=== PATIENT | female | born 1950 | race Two or more races ===

== ENCOUNTER → 2016-04-27 | Outpatient (CLI) | payer MEDICARE, OTHER ==
--- NOTE | 2016-04-30 16:00 | Diagnostic Imaging Report ---
Indication: Screening mammography. Technique: Bilateral mammography performed with craniocaudal and mediolateral oblique projections. Prior examinations: None available Findings: Breast density Birads type 2: The breasts show scattered fibroglandular densities ranging from 25%-50% of the breasts. There are ill-defined somewhat nodular appearing densities within both breasts in the central to 12:00 position and in the upper-outer quadrants bilaterally. Recommend obtaining bilateral diagnostic mammography for further evaluation. Ultrasound as needed could be performed at that time as well. Impression: BI-RADS zero pending bilateral diagnostic mammography as discussed
== END | disposition home or self-care (01) ==
LOC: MAMMO 13:00
DX: Z12.31 Encounter for screening mammogram for malignant neoplasm of breast (principal)
CPT/HCPCS: 77067

== ENCOUNTER 2017-06-15 10:37 | Outpatient (CLI) | payer MEDICARE, OTHER ==
--- NOTE | 2017-06-15 15:17 | Diagnostic Imaging Report ---
Indication: Reason For Exam: PAIN Technique: 3 views of the right ankle Comparison: none Findings: No acute fractures. No dislocations. Probably an ununited ossification center the tip of the medial malleolus. There are vascular calcifications. No definite osseous erosions or unusual periosteal reaction. There is a small calcaneal spur Impression: No acute process
== END 2017-06-15 12:37 | disposition home or self-care (01) ==
LOC: RAD 10:37 → EDBD 10:37 → RAD 12:37
DX: M25.571 Pain in right ankle and joints of right foot (principal)

== ENCOUNTER → 2017-06-29 | Outpatient (CLI) | payer MEDICARE, OTHER ==
--- NOTE | 2017-06-29 13:33 | Diagnostic Imaging Report ---
Indication: Pain. History of ankle injury 2 months ago. Pain on the medial side Technique: Right ankle/hind foot imaging utilizing multiplanar T1 fast spin-echo, proton and T2 fast spin-echo with fat saturation, and STIR. Comparison: None Findings: There is evidence of a split thickness tear of the posterior tibialis tendon just posterior to the medial malleolus. The tendon bifurcates in this location and is abnormally thickened with intermediate to slightly high grade T2 signal within the medial component of the split-thickness tear. In addition there is tenosynovitis with fluid surrounding the tendon and adjacent subcutaneous edema. The tendon is not ruptured and tendon is attached to the base of the navicular. Adjacent flexor digitorum longus is normal. Flexor hallucis longus is normal. The deltoid ligamentous complex is grossly normal. Bone marrow signal is normal and there is no malalignment. There is no fracture. The extensor tendons are normal. Achilles tendon, peroneus longus and brevis tendons are unremarkable. The ligaments and the lateral part of the ankle are normal including the anterior and posterior tibiofibular ligaments, calcaneofibular ligament, anterior and posterior talofibular ligaments. Plantar aponeurosis, tarsal sinus, subtalar joint and Achilles tendon appear unremarkable. IMPRESSION: Moderate split-thickness tear involving the posterior tibialis tendon. Split-thickness injury begins just posterior to the medial malleolus and the tube bifurcated components attached onto the navicular. Associated tenosynovitis.
== END | disposition home or self-care (01) ==
LOC: MRI 11:01
DX: S96.911D Strain of unspecified muscle and tendon at ankle and foot level, right foot, subsequent encounter (principal); X58.XXXD Exposure to other specified factors, subsequent encounter; M65.9 Synovitis and tenosynovitis, unspecified

== ENCOUNTER 2017-12-01 12:30 | Outpatient (RCR) | payer MEDICARE, OTHER ==
[2017-12-24] MEDS ORDERED: AMLODIPINE BES2.5 MG ORAL (11:08)
[2017-12-24] MEDS ORDERED: LOVASTATIN40 MG ORAL (11:08)
[2017-12-24] MEDS ORDERED: DICLOFENAC SODI50 MG ORAL (11:08)
[2017-12-24] MEDS ORDERED: METOPROLOL TART25 MG ORAL (11:08)
[2017-12-24] MEDS ORDERED: ASPIR 8181 MG ORAL (11:08)
== END 2017-12-29 | disposition home or self-care (01) ==
LOC: PTY 12:30
DX: M51.16 Intervertebral disc disorders with radiculopathy, lumbar region (principal); R26.89 Other abnormalities of gait and mobility; I10 Essential (primary) hypertension; I25.2 Old myocardial infarction; S93.401D Sprain of unspecified ligament of right ankle, subsequent encounter
CPT/HCPCS: 97110; 97162; G8978; G8979

== ENCOUNTER 2017-12-24 10:55 | Inpatient (IN) | payer MEDICARE, OTHER ==
[~2017-12-24] VITALS: Ht 154.9 cm; Wt 86.2 kg
[2017-12-24] MEDS ORDERED: LOVASTATIN40 MG ORAL (11:08)
[2017-12-24] MEDS ORDERED: METOPROLOL TART25 MG ORAL (11:08)
[2017-12-24] MEDS ORDERED: AMLODIPINE BES2.5 MG ORAL (11:08)
[2017-12-24] MEDS ORDERED: ASPIR 8181 MG ORAL (11:08)
[2017-12-24] MEDS ORDERED: DICLOFENAC SODI50 MG ORAL (11:08)
[2017-12-24 11:12] VITALS: BP 153/80
--- NOTE | 2017-12-24 11:15 | Emergency Room Report ---
History of Present Illness General Chief Complaint: Gastrointestinal Bleed Source: Patient Present Illness HPI Patient presents with 2 days of rectal bleeding. She started yesterday with passing bright red lead. She has no pain. This is never happened to her before. Today she's passed more blood without clots. Then when she moved her bowels it was dark and that looked like blood was mixed with the stool. She does read on the toilet. After an episode of chest discomfort and unsettled stomach she took herbal laxatives and therefore had some straining several days ago. She tore ligament recently and has been taking diclofenac. She's not taking it for over a week. She took aspirin last night. She takes aspirin every night. The patient had colonoscopy 5 years ago. No polyps were need to be removed. She had diverticula. Many years ago she was having rectal pain that occasionally woke her up in the night. On Wednesday she needs to see her manager meat because her blood pressure was 202 systolic. She's also been feeling chest discomfort with the urge to burp. She was checked by her manager meat and told that she was fine. No EKG was done at that time. She does take medicine for high blood pressure. Allergies: Coded Allergies: IODINE (Verified Allergy, Unknown, 12/24/17) Patient History Past Medical History: see triage record Social History: Denies: smoking Last Menstrual Period: menopause Reviewed Nursing Documentation: PMH: Agreed; PSxH: Agreed Nursing Documentation-PMH Past Medical History: No History, Except For Hx Cardiac Problems: No - two heart attacks Physical Exam Vital Signs Date Time Temp Pulse Resp B/P (MAP) Pulse Ox O2 Delivery O2 Flow Rate FiO2 12/24/17 11:00 98.2 56 18 153/80 98 Room Air Sp02 EP Interpretation: reviewed, normal General Appearance: well appearing, no apparent distress, GCS 15 Head: normocephalic Eyes: bilateral eye normal inspection, bilateral eye PERRL ENT: moist mucus membranes Neck: supple Respiratory: lungs clear, normal breath sounds Cardiovascular #1: regular rate, rhythm Cardiovascular #2: 2+ radial (R) Gastrointestinal: normal inspection, normal bowel sounds, non tender, no mass, non-distended Rectal: heme positive stool - dark red, no hemorrhoids felt Musculoskeletal: back normal, gait/station normal, normal range of motion Neurologic: alert, oriented x3, grossly normal Psychiatric: mood/affect normal Skin: normal inspection, warm/dry Medical Decision Making Diagnostic Impression: Primary Impression: Lower GI bleed Additional Impressions: Hypernatremia Hypercarbia ER Course Patient presents with rectal bleeding and chest discomfort. The latter is more disconcerting and differential includes acute myocardial infarction, acute coronary syndrome, gastritis, GERD, esophagitis amongst others. This needs to be evaluated with EKG, chest x-ray and labs. Her chief complaint of a lower GI bleeding sounds hemorrhoidal however this could also be diverticular as well as a mass. Latter is less likely can she had colonoscopy 5 years ago. She'll be evaluated with labs regarding this. Also abdominal films will be obtained. The patient will be given a dose of Pepcid. EKG was sinus bradycardia but otherwise normal EKG rate of 54. Abnormal labs with elevated sodium and bicarb. CBC, coags and UA normal. Abd film with increased stool. CXR clear. Bradycardia might mask significant bleed as on metoprolol. Possible diverticular bleed vs hemorrhoid. As large amount of blood, will admit for monitor of bleed, consideration of colonoscopy and observation for chest discomfort. ACS low possibility so will admit Med, Dr. Best. Laboratory Tests Test 12/24/17 11:30 12/24/17 12:20 12/24/17 12:40 12/24/17 13:00 White Blood Count 6.3 K/UL (4.8-10.8) Red Blood Count 4.38 M/UL (4.20-5.40) Hemoglobin 13.4 G/DL (12.0-16.0) Hematocrit 39.6 % (37.0-47.0) Mean Corpuscular Volume 90 FL (80-99) Mean Corpuscular Hemoglobin 30.7 PG (27.0-31.0) Mean Corpuscular Hemoglobin Concent 33.9 G/DL (32.0-36.0) Red Cell Distribution Width 12.2 % (11.6-14.8) Platelet Count 208 K/UL (150-450) Mean Platelet Volume 7.7 FL (6.5-10.1) Neutrophils (%) (Auto) 55.9 % (45.0-75.0) Lymphocytes (%) (Auto) 34.3 % (20.0-45.0) Monocytes (%) (Auto) 6.3 % (1.0-10.0) Eosinophils (%) (Auto) 2.3 % (0.0-3.0) Basophils (%) (Auto) 1.2 % (0.0-2.0) Troponin I 0.000 ng/mL (0.000-0.056) Prothrombin Time 10.2 SEC (9.30-11.50) Prothrombin Time INR 1.0 (0.9-1.1) PTT 27 SEC (23-33) Sodium Level 147 MMOL/L (136-145) H Potassium Level 4.4 MMOL/L (3.5-5.1) Chloride Level 109 MMOL/L (98-107) H Carbon Dioxide Level 34 MMOL/L (21-32) H Anion Gap 4 mmol/L (5-15) L Blood Urea Nitrogen 19 mg/dL (7-18) H Creatinine 1.1 MG/DL (0.55-1.30) Estimate Glomerular Filtration Rate 59.8 mL/min (>60) Glucose Level 69 MG/DL (74-106) L Calcium Level 8.9 MG/DL (8.5-10.1) Total Bilirubin 0.6 MG/DL (0.2-1.0) Aspartate Amino Transferase (AST) 19 U/L (15-37) Alanine Aminotransferase (ALT) 29 U/L (12-78) Alkaline Phosphatase 88 U/L (46-116) Total Protein 6.5 G/DL (6.4-8.2) Albumin 3.2 G/DL (3.4-5.0) L Globulin 3.3 g/dL Albumin/Globulin Ratio 1.0 (1.0-2.7) Lipase 138 U/L (73-393) Urine Color Yellow Urine Appearance Clear Urine pH 6 (4.5-8.0) Urine Specific [place] 1.015 (1.005-1.035) Urine Protein Negative (NEGATIVE) Urine Glucose (UA) Negative (NEGATIVE) Urine Ketones Negative (NEGATIVE) Urine Blood 2+ (NEGATIVE) H Urine Nitrite Negative (NEGATIVE) Urine Bilirubin Negative (NEGATIVE) Urine Urobilinogen Normal MG/DL (0.0-1.0) Urine Leukocyte Esterase Negative (NEGATIVE) Urine RBC 2-4 /HPF (0 - 2) H Urine WBC 2-4 /HPF (0 - 2) Urine Squamous Epithelial Cells Few /LPF (NONE/OCC) Urine Bacteria Few /HPF (NONE) EKG Diagnostic Results Rate: bradycardiac ST Segments: no acute changes Rhythm Strip Diag. Results EP Interpretation: yes Rhythm: no PVC's, no ectopy, other - Sinus bradycardia Chest X-Ray Diagnostic Results Chest X-Ray Diagnostic Results : Chest X-Ray Ordered: Yes Indication: Chest Pain Interpretation: no consolidation, no effusion, no pneumothorax Impression: No acute disease Electronically Signed by: Patric Amaya MD Other X-Ray Diagnostic Results Other X-Ray Diagnostic Results : X-Ray ordered: ABD # of Views/Limited Vs Complete: 2 View Indication: Other EP Interpretation: Yes Interpretation: nonspecific bowel gas, no sbo, other - increased stool load Impression: Other Electronically Signed by: Electronically signed by Patric Amaya MD Last Vital Signs Date Time Temp Pulse Resp B/P (MAP) Pulse Ox O2 Delivery O2 Flow Rate FiO2 12/24/17 20:31 54 138/75 12/24/17 20:00 98.3 20 96 12/24/17 16:23 Room Air Status: improved Disposition: ADMITTED INPATIENT Condition: Serious Patric Amaya MD Dec 24, 2017 11:15
[2017-12-24 11:51] LABS: BASOPHILS % (AUTO) 1.2 % (0.0-2.0); EOSINOPHILS % (AUTO) 2.3 % (0.0-3.0); HEMATOCRIT 39.6 % (37.0-47.0); HEMOGLOBIN 13.4 G/DL (12.0-16.0); LYMPHOCYTES % (AUTO) 34.3 % (20.0-45.0); MEAN CORPUSCULAR VOLUME 90 FL (80-99); MONOCYTES % (AUTO) 6.3 % (1.0-10.0); NEUTROPHILS % (AUTO) 55.9 % (45.0-75.0); PLATELET COUNT 208 K/UL (150-450); RED BLOOD COUNT 4.38 M/UL (4.20-5.40); RED CELL DISTRIBUTION WIDTH 12.2 % (11.6-14.8); WHITE BLOOD COUNT 6.3 K/UL (4.8-10.8)
[2017-12-24 12:58] LABS: ANION GAP 4 mmol/L (5-15); BLOOD UREA NITROGEN 19 mg/dL (7-18); CALCIUM 8.9 MG/DL (8.5-10.1); CARBON DIOXIDE 34 MMOL/L (21-32); CHLORIDE 109 MMOL/L (98-107); CREATININE 1.1 MG/DL (0.55-1.30); POTASSIUM 4.4 MMOL/L (3.5-5.1); SODIUM 147 MMOL/L (136-145)
[2017-12-24 13:02] LABS: ALANINE AMINOTRANSFERASE 29 U/L (12-78); ALBUMIN 3.2 G/DL (3.4-5.0); ALKALINE PHOSPHATASE 88 U/L (46-116); ASPARTATE AMINO TRANSFERASE 19 U/L (15-37); BILIRUBIN,TOTAL 0.6 MG/DL (0.2-1.0)
[2017-12-24 13:32] VITALS: BP 121/75
[2017-12-24 13:34] LABS: APPEARANCE,URINE CLEAR; BILIRUBIN, URINE NEGATIVE (NEGATIVE); COLOR,URINE YELLOW; GLUCOSE, URINE (UA) NEGATIVE (NEGATIVE); KETONES,URINE NEGATIVE (NEGATIVE); LEUKOCYTE ESTERASE ,URINE NEGATIVE (NEGATIVE); NITRITE,URINE NEGATIVE (NEGATIVE); PH,URINE 6 (4.5-8.0); PROTEIN,URINE NEGATIVE (NEGATIVE); UROBILINOGEN,URINE NORMAL MG/DL (0.0-1.0)
[2017-12-24 14:45] VITALS: BP 144/75
--- NOTE | 2017-12-24 15:17 | GI Initial Consult Note ---
History of Present Illness General Date patient seen: Dec 24, 2017 Time patient seen: 15:09 Reason for Hospitalization: Gastrointestinal Bleed Referring physician: CRICKET LOWERY Reason for Consultation: GI BLEED Present Illness HPI Patient presents with 2 days of rectal bleeding. She started yesterday with passing bright red lead. She has no pain. This is never happened to her before. Today she's passed more blood without clots. Then when she moved her bowels it was dark and that looked like blood was mixed with the stool. She does read on the toilet. After an episode of chest discomfort and unsettled stomach she took herbal laxatives and therefore had some straining several days ago. She tore ligament recently and has been taking diclofenac. She's not taking it for over a week. She took aspirin last night. She takes aspirin every night. The patient had colonoscopy 5 years ago. No polyps were need to be removed. She had diverticula. Many years ago she was having rectal pain that occasionally woke her up in the night. On Wednesday she needs to see her label printing machinist because her blood pressure was 202 systolic. She's also been feeling chest discomfort with the urge to burp. She was checked by her label printing machinist and told that she was fine. No EKG was done at that time. She does take medicine for high blood pressure. GI consulted for GI bleed. HPI noted as above. Pt seen, awake A&Ox4 NAD with no active s/sx of N/V/D. Rectal exam deferred, has been performed by ED MD with no noted hemorrhoids per RN report. Labs reviewed showed no anemia nor leukocytosis. In addition, the patient has complaint of abdominal bloating and GERD. States she has history of NM, but is only on aspirin. No history of EGD , last colonoscopy x5 years. Home Meds Reported Medications Metoprolol Tartrate* (METOPROLOL TARTRATE*) 25 Mg Tablet, 25 MG ORAL EVERY 12 HOURS, TAB 12/24/17 Lovastatin (LOVASTATIN) 40 Mg Tablet, 40 MG ORAL BEDTIME, #30 TAB 0 Refills 12/24/17 Diclofenac Sod* (VOLTAREN*) 50 Mg Tablet.dr, 50 MG ORAL THREE TIMES A DAY, TAB 12/24/17 Aspirin* (ASPIR 81*) 81 Mg Tablet.dr, 81 MG ORAL DAILY, TAB 12/24/17 Amlodipine Besylate* (AMLODIPINE BESYLATE*) 2.5 Mg Tablet, 2.5 MG ORAL DAILY, TAB 12/24/17 Med list reviewed/reconciled: Yes Allergies: Coded Allergies: IODINE (Verified Allergy, Unknown, 12/24/17) Patient History History Provided By: Patient, Medical Record PMH Narrative Past Medical History: see triage record Social History: Denies: smoking Last Menstrual Period: menopause Reviewed Nursing Documentation: PMH: Agreed; PSxH: Agreed Nursing Documentation-PMH Past Medical History: No History, Except For Hx Cardiac Problems: No - two heart attacks Pertinent Family History: none Social History: Denies: smoking, alcohol use, drug use, other Physical Exam Vital Signs Date Time Temp Pulse Resp B/P (MAP) Pulse Ox O2 Delivery O2 Flow Rate FiO2 12/24/17 11:00 98.2 56 18 153/80 98 Room Air Sp02 EP Interpretation: reviewed, normal Labs Laboratory Tests Test 12/24/17 11:30 12/24/17 12:20 12/24/17 12:40 12/24/17 13:00 White Blood Count 6.3 K/UL (4.8-10.8) Red Blood Count 4.38 M/UL (4.20-5.40) Hemoglobin 13.4 G/DL (12.0-16.0) Hematocrit 39.6 % (37.0-47.0) Mean Corpuscular Volume 90 FL (80-99) Mean Corpuscular Hemoglobin 30.7 PG (27.0-31.0) Mean Corpuscular Hemoglobin Concent 33.9 G/DL (32.0-36.0) Red Cell Distribution Width 12.2 % (11.6-14.8) Platelet Count 208 K/UL (150-450) Mean Platelet Volume 7.7 FL (6.5-10.1) Neutrophils (%) (Auto) 55.9 % (45.0-75.0) Lymphocytes (%) (Auto) 34.3 % (20.0-45.0) Monocytes (%) (Auto) 6.3 % (1.0-10.0) Eosinophils (%) (Auto) 2.3 % (0.0-3.0) Basophils (%) (Auto) 1.2 % (0.0-2.0) Troponin I 0.000 ng/mL (0.000-0.056) Prothrombin Time 10.2 SEC (9.30-11.50) Prothromb Time International Ratio 1.0 (0.9-1.1) Activated Partial Thromboplast Time 27 SEC (23-33) Sodium Level 147 MMOL/L (136-145) H Potassium Level 4.4 MMOL/L (3.5-5.1) Chloride Level 109 MMOL/L (98-107) H Carbon Dioxide Level 34 MMOL/L (21-32) H Anion Gap 4 mmol/L (5-15) L Blood Urea Nitrogen 19 mg/dL (7-18) H Creatinine 1.1 MG/DL (0.55-1.30) Estimat Glomerular Filtration Rate 59.8 mL/min (>60) Glucose Level 69 MG/DL (74-106) L Calcium Level 8.9 MG/DL (8.5-10.1) Total Bilirubin 0.6 MG/DL (0.2-1.0) Aspartate Amino Transf (AST/SGOT) 19 U/L (15-37) Alanine Aminotransferase (ALT/SGPT) 29 U/L (12-78) Alkaline Phosphatase 88 U/L (46-116) Total Protein 6.5 G/DL (6.4-8.2) Albumin 3.2 G/DL (3.4-5.0) L Globulin 3.3 g/dL Albumin/Globulin Ratio 1.0 (1.0-2.7) Lipase 138 U/L (73-393) Urine Color Yellow Urine Appearance Clear Urine pH 6 (4.5-8.0) Urine Specific [place] 1.015 (1.005-1.035) Urine Protein Negative (NEGATIVE) Urine Glucose (UA) Negative (NEGATIVE) Urine Ketones Negative (NEGATIVE) Urine Blood 2+ (NEGATIVE) H Urine Nitrite Negative (NEGATIVE) Urine Bilirubin Negative (NEGATIVE) Urine Urobilinogen Normal MG/DL (0.0-1.0) Urine Leukocyte Esterase Negative (NEGATIVE) Urine RBC 2-4 /HPF (0 - 2) H Urine WBC 2-4 /HPF (0 - 2) Urine Squamous Epithelial Cells Few /LPF (NONE/OCC) Urine Bacteria Few /HPF (NONE) General Appearance: well appearing, no apparent distress, alert Head: normocephalic EENT: PERRL/EOMI, normal ENT inspection Neck: supple Respiratory: normal breath sounds, no respiratory distress Cardiovascular: normal rate Gastrointestinal: normal inspection, non tender, soft, normal bowel sounds, non -distended Rectal: deferred Genitourinary: no CVA tenderness Musculoskeletal: normal inspection, back normal Neurologic: normal inspection, alert, oriented x3, responsive Psychiatric: normal inspection, judgement/insight normal, memory normal Skin: normal inspection, normal color, no rash, warm/dry, palpation normal, well hydrated Lymphatic: normal inspection, no adenopathy GI: Plan Problems: (1) Bleeding hemorrhoid (2) Diverticular hemorrhage (3) Lower GI bleed Plan no anemia. no leukocytosis. plan for colonoscopy next wednesday. - prep on wednesday, then NPO @ OK. okay to advance diet prn transfusions ppi fu labs Discussed with Dr. Noriega. Thank you for this patient referral, we will follow. The patient was seen and examined at bedside and all new and available data was reviewed in the patients chart. I agree with the above findings, impression and plan. (Patient seen earlier today. Signature stamp does not reflect patient encounter time.). - MD Mattie Singh,[facility] [employer] Dec 24, 2017 15:16
--- NOTE | 2017-12-24 15:25 | Diagnostic Imaging Report ---
Indication: Cough Technique: One view of the chest Comparison: none Findings: Lungs and pleural spaces are clear. Heart size is normal . The aorta is tortuous and calcified Impression: No acute process
--- NOTE | 2017-12-24 15:27 | Diagnostic Imaging Report ---
Indication: Abdominal pain Technique: Supine view of the abdomen Comparison: none Findings: Bowel gas pattern is unremarkable. No unusual masses or calcifications. No gaseous distention of large or small bowel. Bones demonstrate somewhat mottled appearance of the bilateral greater trochanters. There are degenerative changes of the lower lumbar spine. Impression: No acute process Somewhat unusual appearance of the bilateral greater trochanters of the hips. Most likely artifact due to overlying soft tissue lucencies and densities, but dedicated pelvic radiograph should be considered Findings previously discussed by phone with Dr. Amaya
[2017-12-24 16:10] VITALS: BP 142/72
[2017-12-24 20:00] VITALS: BP 138/75
[2017-12-24] MEDS: Zolpidem 5mg tab ORAL PRN (20:31)
[2017-12-24] MEDS: Metoprolol 25mg tab ORAL SCH (20:31)
--- NOTE | 2017-12-24 23:30 | Consultation ---
DATE OF CONSULTATION: 12/24/2017 REQUESTING PHYSICIAN: Frederic Shipman M.D. CONSULTING PHYSICIAN: Patric Best M.D. REASON FOR CONSULTATION: Chest pain and bradycardia in the setting of acute gastrointestinal bleeding. HISTORY OF PRESENT ILLNESS: This is a 67-year-old female with a history of asymptomatic diverticulosis who presented to the hospital with 2 days of progressive rectal bleeding. Yesterday, she had a small amount of light bright red blood with her bowel movement and today more greater amounts, quantitated to be about a pint ____. No abdominal pain noted. No nausea, vomiting, or dizziness, but she did have some chest pressure. The patient does take daily aspirin as well as Diclofenac more recently for a torn ligament of her ankle. The patient's last colonoscopy was about 5 years ago. She only was noted to have diverticula, but no other pathology. She has not had any nausea or vomiting. The patient did see me in my office early last week for an elevated blood pressure of over 200 systolic. She had burping. Her blood pressure regimen was adjusted. The patient has had a prior stress echocardiogram at my office within the last six months that revealed good exercise capacity and low likelihood for flow-limiting coronary artery disease. The patient's baseline echocardiogram reveals normal ejection fraction with mild concentric hypertrophy and no significant valvular disease. PAST MEDICAL HISTORY: Coronary artery disease, history of myocardial infarction, diverticulosis, sleep apnea, osteoarthritis, degenerative disk disease, hyperlipidemia, and recent ankle injury. MEDICATIONS: Prior to admission, reviewed and reconciled. ALLERGIES: Iodine. SOCIAL HISTORY: Negative for smoking, alcohol, or substance abuse. FAMILY HISTORY: Notable for hypertension and stroke. REVIEW OF SYSTEMS: No fevers or chills. No cough or sputum production. Her BiPAP machine has recently been functioning poorly and she is waiting for a new one. She is noted to have syncope. There is ___ history of asthma or blood clots in the legs. There is no history of seizure or stroke. There is no prior history of melena or bright red blood per rectum. There is no history of kidney disease. There is no history of diabetes or thyroid impairment. She is on statin therapy for elevated lipid. PHYSICAL EXAMINATION: VITAL SIGNS: Afebrile, blood pressure 153/80, pulse 56, respiratory rate 18, and room air oxygen saturation 98%. HEENT: Conjunctivae are pink. Sclerae are anicteric. Oropharynx clear. Mucous membranes moist. NECK: Supple. Jugular venous pressure normal. No bruits. LUNGS: Clear. No breast masses. CARDIAC: Regular rhythm and rate. Normal S1 and S2 with a fourth heart sound. ABDOMEN: Soft and nontender. No guarding. No rebound. No hepatosplenomegaly. EXTREMITIES: Good pulses. No edema. NEUROLOGIC: Nonfocal. LABORATORY DATA: EKG with sinus bradycardia and no acute pathology. White count 6.3 and hemoglobin 13.4. Sodium 147, potassium 4.4, bicarbonate 34, BUN 19, and creatinine 1.1. Albumin 3.2. Troponin negative. IMPRESSION: 1. Acute lower gastrointestinal bleeding. 2. Chest pain episode, possibly anginal. 3. Sinus bradycardia, on beta-blockers and asymptomatic. 4. History of ischemic heart disease. 5. Prior myocardial infarction, stable angina and recent normal stress test. 6. Sleep apnea. 7. Hypertensive heart disease with labile blood pressure. PLAN: 1. Hold anti-platelet therapy including nonsteroidal drugs and aspirin. 2. Monitor hemoglobin. 3. Empiric proton pump inhibitor. 4. Continue beta-irma with hold parameters. 5. Titrate antihypertensives based on clinical parameters. 6. Avoid ____ blood pressure control in the setting of potential further gastrointestinal bleeding. 7. Avoid heparin at this time. Patric Best M.D. DR: ASHLEY JOB#: [id number] CC:
[2017-12-25] VITALS: BP 134/70
[2017-12-25 04:00] VITALS: BP 102/57
[2017-12-25 08:00] VITALS: BP 148/71
--- NOTE | 2017-12-25 08:08 | General Progress Note ---
Assessment/Plan Problem List: (1) Lower GI bleed ICD Codes: K92.2 - Gastrointestinal hemorrhage, unspecified SNOMED: 48050752 Assessment/Plan most likely diverticular bleed bowel regimen fu labs colonoscopy on Wednesday Subjective ROS Limited/Unobtainable: Yes Allergies: Coded Allergies: IODINE (Verified Allergy, Unknown, 12/24/17) Subjective no recurrent bleed Objective Last 24 Hour Vital Signs Date Time Temp Pulse Resp B/P (MAP) Pulse Ox O2 Delivery O2 Flow Rate FiO2 12/25/17 04:00 98.2 89 20 102/57 (72) 99 12/25/17 00:00 97.9 54 20 134/70 (91) 98 12/24/17 21:00 Room Air 12/24/17 20:31 54 138/75 12/24/17 20:00 98.3 54 20 138/75 (96) 96 12/24/17 16:23 Room Air 12/24/17 16:10 98.3 55 20 142/72 (95) 97 12/24/17 14:45 98.2 56 14 144/75 98 Room Air 12/24/17 14:45 98.2 56 14 144/75 98 Room Air 12/24/17 13:32 98.2 56 15 121/75 98 Room Air 12/24/17 11:12 98.2 60 18 153/80 98 Room Air 12/24/17 11:10 56 18 Room Air 12/24/17 11:00 98.2 56 18 153/80 98 Room Air Intake and Output 12/24/17 12/25/17 19:00 07:00 Intake Total 1375 ml Balance 1375 ml Intake IV Total 1375 ml # Voids 2 Laboratory Tests 12/24/17 11:30: White Blood Count 6.3, Red Blood Count 4.38, Hemoglobin 13.4, Hematocrit 39.6, Mean Corpuscular Volume 90, Mean Corpuscular Hemoglobin 30.7, Mean Corpuscular Hemoglobin Concent 33.9, Red Cell Distribution Width 12.2, Platelet Count 208, Mean Platelet Volume 7.7, Neutrophils (%) (Auto) 55.9, Lymphocytes (%) (Auto) 34.3, Monocytes (%) (Auto) 6.3, Eosinophils (%) (Auto) 2.3, Basophils (%) (Auto ) 1.2, Troponin I 0.000 12/24/17 12:20: Prothrombin Time 10.2, Prothromb Time International Ratio 1.0, Activated Partial Thromboplast Time 27 12/24/17 12:40: Sodium Level 147H, Potassium Level 4.4, Chloride Level 109H, Carbon Dioxide Level 34H, Anion Gap 4L, Blood Urea Nitrogen 19H, Creatinine 1.1, Estimat Glomerular Filtration Rate 59.8, Glucose Level 69L, Calcium Level 8.9, Total Bilirubin 0.6, Aspartate Amino Transf (AST/SGOT) 19, Alanine Aminotransferase ( ALT/SGPT) 29, Alkaline Phosphatase 88, Total Protein 6.5, Albumin 3.2L, Globulin 3.3, Albumin/Globulin Ratio 1.0, Lipase 138 12/24/17 13:00: Urine Color Yellow, Urine Appearance Clear, Urine pH 6, Urine Specific [place] 1.015, Urine Protein Negative, Urine Glucose (UA) Negative, Urine Ketones Negative, Urine Blood 2+H, Urine Nitrite Negative, Urine Bilirubin Negative, Urine Urobilinogen Normal, Urine Leukocyte Esterase Negative, Urine RBC 2-4H, Urine WBC 2-4, Urine Squamous Epithelial Cells Few, Urine Bacteria Few Height (Feet): 5 Height (Inches): 1.00 Weight (Pounds): 190 General Appearance: alert EENT: PERRL/EOMI Neck: supple Cardiovascular: normal rate Respiratory/Chest: decreased breath sounds Abdomen: normal bowel sounds, non tender, soft Extremities: non-tender Clarence Noriega MD Dec 25, 2017 08:08
[2017-12-25] MEDS: Metoprolol 25mg tab ORAL SCH ×2 (08:19→21:48)
[2017-12-25] MEDS: Docusate 100mg cap ORAL SCH ×2 (10:11→17:42)
[2017-12-25 12:00] VITALS: BP 160/83
[2017-12-25 16:00] VITALS: BP 131/82
--- NOTE | 2017-12-25 17:00 | History and Physical Report ---
DATE OF ADMISSION: 12/24/2017 CHIEF COMPLAINT: GI bleed. HISTORY OF PRESENT ILLNESS: The patient is a pleasant female, who presented with complaints of chest pain, bradycardia, and rectal bleeding. According to the patient, she was well until several days prior to admission when she noted bright red blood in the toilet bowl when having a bowel movement. On the day of admission, though she had more bloody stool that was watery. It appeared that the entire volume of stool was blood. She also had some mild chest pain and some dizziness. She presented to the emergency room. On evaluation there, the patient was noted to be bradycardic. Her hemoglobin that was stable. She was dehydrated with elevated sodium of 147. She is on aspirin therapy. She has been taking an anti-inflammatory for her ankle. She is unclear of the exact medication. In light of the bleeding, she is admitted for further evaluation and care. PAST MEDICAL HISTORY: As above. The patient has history of hypertensive heart disease, ischemic cardiomyopathy, history of diverticulosis, sleep apnea, osteoarthritis, and hyperlipidemia. PAST SURGICAL HISTORY: None. CURRENT MEDICATIONS: Reconciled and reviewed. ALLERGIES: Include iodine. FAMILY HISTORY: Noncontributory. SOCIAL HISTORY: There is no known history of tobacco, ethanol, or drugs. REVIEW OF SYSTEMS: GENERAL: No fever or chills. HEENT: No headaches or visual changes. CARDIOPULMONARY: Mild chest pain, but no shortness of breath. GASTROINTESTINAL: No nausea or vomiting. Positive melena and bright red blood per rectum GENITOURINARY: No urgency or frequency. MUSCULOSKELETAL: Positive ankle pain. NEUROLOGIC: No history of seizures. PHYSICAL EXAMINATION: VITAL SIGNS: Temperature 97.1, pulse 56, respirations 20, and blood pressure 148/71. GENERAL: The patient is well developed, no apparent distress. HEART: Regular rate and rhythm. LUNGS: Clear. ABDOMEN: Soft, nontender, and nondistended. EXTREMITIES: Without clubbing, cyanosis, or edema. LABORATORY DATA: Sodium was 147, potassium 4.4, BUN 19, and creatinine 1.1. INR was 1. UA was clear. EKG showed sinus rhythm. ASSESSMENT: This is a pleasant female admitted with complaints of GI bleed. PROBLEM LIST: 1. GI bleed. 2. Chest pain, rule out acute coronary syndrome. 3. Dehydration and hypernatremia. 4. Hypertension. 5. Recent ankle strain/sprain. PLAN: Discontinue aspirin. IV proton pump inhibitors will be started. Serial CBCs will be drawn. GI consultation for endoscopy. Cardiology evaluation for chest pain and for clearance for endoscopy. Frederic Shipman M.D. DR: BLANCA JOB#: [id number] CC:
[2017-12-25 20:00] VITALS: BP 166/71
[2017-12-25] MEDS: Miralax 17gm pkt ORAL SCH (21:48)
--- NOTE | 2017-12-25 23:15 | Progress Note ---
DATE: 12/25/2017 CARDIOLOGY PROGRESS NOTE SUBJECTIVE: No new bleeding noted. No chest pain. No shortness of breath. PHYSICAL EXAMINATION: VITAL SIGNS: Blood pressure 138/75, heart rate 64, respiratory rate 20. NECK: Supple. LUNGS: Clear. CARDIAC: Regular rhythm and rate. Normal S1 and S2 with a fourth heart sound. ABDOMEN: Soft. No focal tenderness, guarding or rebound. EXTREMITIES: No edema. LABORATORY DATA: Pending. IMPRESSION: 1. Lower gastrointestinal bleeding. 2. Anginal episode, recovered. 3. Sinus bradycardia on beta-blockers. 4. Hypertensive heart disease with controlled blood pressure. 5. History of sleep apnea. PLAN: 1. Followup hemoglobin. 2. Remain off anti-platelet therapy. 3. Hold antihypertensives other than beta-irma at this time as blood pressure control is adequate. 4. Diagnostic colonoscopy planned. 5. Ischemia workup recently done as an outpatient. We would not repeat unless signs and symptoms of coronary insufficiency are noted again. Patric Best M.D. DR: Trice JOB#: [id number] CC:
[2017-12-26] VITALS: BP 154/80
[2017-12-26] MEDS: Zolpidem 5mg tab ORAL PRN (00:27)
[2017-12-26 07:08] LABS: BASOPHILS % (AUTO) 0.7 % (0.0-2.0); EOSINOPHILS % (AUTO) 2.9 % (0.0-3.0); HEMATOCRIT 43.3 % (37.0-47.0); HEMOGLOBIN 14.7 G/DL (12.0-16.0); LYMPHOCYTES % (AUTO) 31.9 % (20.0-45.0); MEAN CORPUSCULAR VOLUME 90 FL (80-99); MONOCYTES % (AUTO) 5.3 % (1.0-10.0); NEUTROPHILS % (AUTO) 59.3 % (45.0-75.0); PLATELET COUNT 205 K/UL (150-450); RED BLOOD COUNT 4.81 M/UL (4.20-5.40); RED CELL DISTRIBUTION WIDTH 12.3 % (11.6-14.8); WHITE BLOOD COUNT 6.7 K/UL (4.8-10.8)
[2017-12-26 07:38] LABS: ANION GAP 7 mmol/L (5-15); BLOOD UREA NITROGEN 13 mg/dL (7-18); CALCIUM 9.2 MG/DL (8.5-10.1); CARBON DIOXIDE 27 MMOL/L (21-32); CHLORIDE 108 MMOL/L (98-107); CREATININE 0.9 MG/DL (0.55-1.30); POTASSIUM 3.9 MMOL/L (3.5-5.1); SODIUM 142 MMOL/L (136-145)
--- NOTE | 2017-12-26 07:46 | General Progress Note ---
Assessment/Plan Problem List: (1) Lower GI bleed ICD Codes: K92.2 - Gastrointestinal hemorrhage, unspecified SNOMED: 05124929 Assessment/Plan most likely diverticular bleed bowel regimen fu labs colonoscopy on Wednesday Subjective ROS Limited/Unobtainable: Yes Allergies: Coded Allergies: IODINE (Verified Allergy, Unknown, 12/24/17) Subjective no recurrent bleed Objective Last 24 Hour Vital Signs Date Time Temp Pulse Resp B/P (MAP) Pulse Ox O2 Delivery O2 Flow Rate FiO2 12/26/17 00:00 97.7 61 20 154/80 (104) 95 12/25/17 21:48 60 166/71 12/25/17 21:00 Room Air 12/25/17 20:00 98.3 51 19 166/71 (102) 95 12/25/17 16:00 98.4 59 20 131/82 (98) 98 12/25/17 12:00 97.7 55 18 160/83 (108) 99 12/25/17 09:00 Room Air 12/25/17 08:19 56 148/71 12/25/17 08:00 97.1 56 20 148/71 (96) 97 Intake and Output 12/25/17 12/26/17 19:00 07:00 Intake Total 1080 ml 1615 ml Balance 1080 ml 1615 ml Intake Oral 1080 ml 240 ml IV Total 1375 ml # Voids 5 4 Laboratory Tests 12/26/17 06:10: White Blood Count 6.7, Red Blood Count 4.81, Hemoglobin 14.7, Hematocrit 43.3, Mean Corpuscular Volume 90, Mean Corpuscular Hemoglobin 30.6, Mean Corpuscular Hemoglobin Concent 34.0, Red Cell Distribution Width 12.3, Platelet Count 205, Mean Platelet Volume 7.9, Neutrophils (%) (Auto) 59.3, Lymphocytes (%) (Auto) 31.9, Monocytes (%) (Auto) 5.3, Eosinophils (%) (Auto) 2.9, Basophils (%) (Auto ) 0.7, Prothrombin Time 10.3, Prothromb Time International Ratio 1.0, Sodium Level 142, Potassium Level 3.9, Chloride Level 108H, Carbon Dioxide Level 27, Anion Gap 7, Blood Urea Nitrogen 13, Creatinine 0.9, Estimat Glomerular Filtration Rate > 60, Glucose Level 93, Calcium Level 9.2 Height (Feet): 5 Height (Inches): 1.00 Weight (Pounds): 190 General Appearance: alert EENT: normal ENT inspection Neck: supple Cardiovascular: normal rate Respiratory/Chest: decreased breath sounds Abdomen: normal bowel sounds, non tender, soft Extremities: non-tender Clarence Noriega MD Dec 26, 2017 07:46
[2017-12-26 08:00] VITALS: BP 146/87
[2017-12-26] MEDS: Metoprolol 25mg tab ORAL SCH ×2 (08:42→20:43)
[2017-12-26] MEDS: Docusate 100mg cap ORAL SCH ×2 (08:42→17:57)
--- NOTE | 2017-12-26 11:21 | General Progress Note ---
Assessment/Plan Problem List: (1) Bleeding hemorrhoid ICD Codes: K64.9 - Unspecified hemorrhoids SNOMED: 04053121 (2) Diverticular hemorrhage ICD Codes: K57.31 - Diverticulosis of large intestine without perforation or abscess with bleeding SNOMED: 10250609, 223070101 (3) Hypercarbia ICD Codes: R06.89 - Other abnormalities of breathing SNOMED: 18121159 (4) Hypernatremia ICD Codes: E87.0 - Hyperosmolality and hypernatremia SNOMED: 91441646 (5) Lower GI bleed ICD Codes: K92.2 - Gastrointestinal hemorrhage, unspecified SNOMED: 41877151 Status: stable Assessment/Plan PPI rx holding aspirin no nsaids serial cbc endoscopy tomorrow Subjective ROS Limited/Unobtainable: No Constitutional: Reports: no symptoms HEENT: Reports: no symptoms Cardiovascular: Reports: no symptoms Respiratory: Reports: no symptoms Gastrointestinal/Abdominal: Reports: blood in stool, constipated Genitourinary: Reports: no symptoms Neurologic/Psychiatric: Reports: no symptoms Endocrine: Reports: no symptoms Hematologic/Lymphatic: Reports: no symptoms Allergies: Coded Allergies: IODINE (Verified Allergy, Unknown, 12/24/17) All Systems: reviewed and negative except above Subjective no bleeding. actually feels constipated. Objective Last 24 Hour Vital Signs Date Time Temp Pulse Resp B/P (MAP) Pulse Ox O2 Delivery O2 Flow Rate FiO2 12/26/17 08:42 63 146/87 12/26/17 08:00 98.4 63 18 146/87 (106) 99 12/26/17 08:00 Room Air 12/26/17 00:00 97.7 61 20 154/80 (104) 95 12/25/17 21:48 60 166/71 12/25/17 21:00 Room Air 12/25/17 20:00 98.3 51 19 166/71 (102) 95 12/25/17 16:00 98.4 59 20 131/82 (98) 98 12/25/17 12:00 97.7 55 18 160/83 (108) 99 Intake and Output 12/25/17 12/26/17 19:00 07:00 Intake Total 1080 ml 1615 ml Balance 1080 ml 1615 ml Intake Oral 1080 ml 240 ml IV Total 1375 ml # Voids 5 4 Laboratory Tests 12/26/17 06:10: White Blood Count 6.7, Red Blood Count 4.81, Hemoglobin 14.7, Hematocrit 43.3, Mean Corpuscular Volume 90, Mean Corpuscular Hemoglobin 30.6, Mean Corpuscular Hemoglobin Concent 34.0, Red Cell Distribution Width 12.3, Platelet Count 205, Mean Platelet Volume 7.9, Neutrophils (%) (Auto) 59.3, Lymphocytes (%) (Auto) 31.9, Monocytes (%) (Auto) 5.3, Eosinophils (%) (Auto) 2.9, Basophils (%) (Auto ) 0.7, Prothrombin Time 10.3, Prothromb Time International Ratio 1.0, Sodium Level 142, Potassium Level 3.9, Chloride Level 108H, Carbon Dioxide Level 27, Anion Gap 7, Blood Urea Nitrogen 13, Creatinine 0.9, Estimat Glomerular Filtration Rate > 60, Glucose Level 93, Calcium Level 9.2 Height (Feet): 5 Height (Inches): 1.00 Weight (Pounds): 190 General Appearance: WD/WN Neck: supple Cardiovascular: regular rhythm Respiratory/Chest: lungs clear Abdomen: normal bowel sounds, non tender, soft, no organomegaly Edema: no edema noted Arm (L), no edema noted Arm (R), no edema noted Leg (L), no edema noted Leg (R), no edema noted Pedal (L), no edema noted Pedal (R), no edema noted Generalized Frederic Shipman MD Dec 26, 2017 11:21
[2017-12-26 12:00] VITALS: BP 133/66
[2017-12-26 16:00] VITALS: BP 142/78
[2017-12-26] MEDS ORDERED: Nulytely 4L ORAL ONE (16:00)
[2017-12-26 20:00] VITALS: BP 174/90
[2017-12-26] MEDS: Miralax 17gm pkt ORAL SCH (20:44)
--- NOTE | 2017-12-26 23:45 | Progress Note ---
DATE: 12/26/2017 CARDIOLOGY PROGRESS NOTE SUBJECTIVE: The patient is starting on her bowel prep. She has no new gastrointestinal bleeding. She has no chest pain or shortness of breath since admission. Her blood pressure parameters remain stable and she has not received her amlodipine since admission either. She continues on her beta-irma, however. OBJECTIVE: VITAL SIGNS: Blood pressure 142/78 with one elevated level of 174/90 this evening, heart rate 62, respiratory rate 18, and afebrile. Oxygen saturation on room air 94% to 99%. LUNGS: Clear. CARDIAC: Regular. Normal S1, S2 with a fourth heart sound. ABDOMEN: Soft. No focal guarding, rebound, or tenderness. EXTREMITIES: No edema. IMPRESSION: 1. Gastrointestinal bleeding probably due to diverticulosis. 2. Hypertensive heart disease with rising blood pressure range. 3. Sinus bradycardia due to beta-irma therapy and is asymptomatic. 4. Coronary atherosclerosis with distant history of myocardial infarction now with stable angina despite single chest pain episode prior to admission. PLAN: 1. Complete bowel prep. 2. Stable from cardiovascular standpoint for colonoscopy. 3. Restart and titrate amlodipine for optimal blood pressure control. 4. Continue beta-irma. 5. P.r.n. hydralazine while NPO by IV route for blood pressure spikes. 6. Continue to hold anti-platelet therapy until diagnostic GI workup is complete. 7. Followup hemoglobin level. Patric Best M.D. DR: NADIYA JOB#: [id number] CC:
[2017-12-27] VITALS (10 sets, daily range): BP systolic 146–188; BP diastolic 80–101
[2017-12-27] MEDS: HydrALAZINE 10mg Tab ORAL PRN ×3 (00:32→17:12)
[2017-12-27 06:29] LABS: BASOPHILS % (AUTO) 0.5 % (0.0-2.0); EOSINOPHILS % (AUTO) 2.3 % (0.0-3.0); HEMATOCRIT 42.3 % (37.0-47.0); HEMOGLOBIN 14.3 G/DL (12.0-16.0); LYMPHOCYTES % (AUTO) 28.3 % (20.0-45.0); MEAN CORPUSCULAR VOLUME 90 FL (80-99); NEUTROPHILS % (AUTO) 62.9 % (45.0-75.0); PLATELET COUNT 205 K/UL (150-450); RED BLOOD COUNT 4.71 M/UL (4.20-5.40); RED CELL DISTRIBUTION WIDTH 12.3 % (11.6-14.8); WHITE BLOOD COUNT 6.7 K/UL (4.8-10.8)
[2017-12-27] MEDS ORDERED: DiphenhydrAMINE 50mg/ml Inj IVP PRN (06:30)
[2017-12-27] MEDS ORDERED: Midazolam 2mg/2ml Inj IVP PRN (06:30)
[2017-12-27] MEDS ORDERED: Atropine Inj 1mg/10ml Syr IV PRN (06:30)
[2017-12-27] MEDS ORDERED: fentaNYL 100 mcg/2 mL IV PRN (06:30)
--- NOTE | 2017-12-27 06:33 | Anethesia Preoperative Eval ---
Anesthesia Pre-op PMH/ROS General Date of Evaluation: Dec 27, 2017 Time of Evaluation: 06:31 Anesthesiologist: feliz ASA Score: ASA 3 Mallampati Score Class I : Soft palate, uvula, fauces, pillars visible Class II: Soft palate, uvula, fauces visible Class III: Soft palate, base of uvula visible Class IV: Only hard plate visible Mallampati Classification: Class II Surgeon: som Diagnosis: lgib Surgical Procedure: colonoscopy Anesthesia History: none Social History: smoking - former smoker Family History: no anesthesia problems Allergies: Coded Allergies: IODINE (Verified Allergy, Unknown, 12/24/17) Medications: see eMAR Patient NPO?: Yes Past Medical History Cardiovascular: Reports: HTN, [place] Pulmonary: Reports: JACQUE Endocrine: Reports: other - menopause Musculoskeletal/Integumentary: Reports: OA Other: obesity Anesthesia Pre-op Phys. Exam Physician Exam Last Vital Signs Date Time Temp Pulse Resp B/P (MAP) Pulse Ox O2 Delivery O2 Flow Rate FiO2 12/27/17 04:00 97.9 57 20 158/89 (112) 97 12/26/17 21:00 Room Air Constitutional: NAD Neurologic: CN 2-12 intact Cardiovascular: RRR Respiratory: CTA Gastrointestinal: S/NT/ND Airway Exam Mallampati Score: Class II MO: full Neck: short TMD: 2fb ROM: full Anesthesia Pre-op A/P Labs Hematology Test 12/27/17 05:45 White Blood Count Pending Red Blood Count Pending Hemoglobin Pending Hematocrit Pending Mean Corpuscular Volume Pending Mean Corpuscular Hemoglobin Pending Mean Corpuscular Hemoglobin Concent Pending Red Cell Distribution Width Pending Platelet Count Pending Mean Platelet Volume Pending Neutrophils (%) (Auto) Pending Lymphocytes (%) (Auto) Pending Monocytes (%) (Auto) Pending Eosinophils (%) (Auto) Pending Basophils (%) (Auto) Pending Chemistry Test 12/27/17 05:45 Sodium Level Pending Potassium Level Pending Chloride Level Pending Carbon Dioxide Level Pending Blood Urea Nitrogen Pending Creatinine Pending Estimat Glomerular Filtration Rate Pending Glucose Level Pending Calcium Level Pending Risk Assessment & Plan Assessment: asa3 Plan: mac Status Change Before Surgery: No Pre-Antibiotics Drug: Tiffany Chisholm MD Dec 27, 2017 06:33
[2017-12-27 06:57] LABS: ANION GAP 9 mmol/L (5-15); BLOOD UREA NITROGEN 11 mg/dL (7-18); CALCIUM 9.1 MG/DL (8.5-10.1); CARBON DIOXIDE 25 MMOL/L (21-32); CHLORIDE 108 MMOL/L (98-107); CREATININE 0.8 MG/DL (0.55-1.30); POTASSIUM 3.6 MMOL/L (3.5-5.1); SODIUM 142 MMOL/L (136-145)
[2017-12-27] MEDS ORDERED: Lidocaine 1% MPF 10mg/ml 5ml ONE (07:53)
[2017-12-27] MEDS ORDERED: Propofol 200mg/20ml IV ONE (07:53)
[2017-12-27] MEDS ORDERED: Glycopyrrolate 0.2mg/ml 1ml Vial ONE (07:53)
--- NOTE | 2017-12-27 07:57 | General Progress Note ---
Assessment/Plan Assessment/Plan Assessment - Hematochezia - hemorrhoid vs diverticular - HTN - JACQUE - ischemic CM - hyperlipidemia Recommendations - NPO - IVF - Colonoscopy today Subjective Allergies: Coded Allergies: IODINE (Verified Allergy, Unknown, 12/24/17) Subjective Feels OK slight BRBPR x 2, small, last PM subsequently no bleeding H&H noted / normal Objective Last 24 Hour Vital Signs Date Time Temp Pulse Resp B/P (MAP) Pulse Ox O2 Delivery O2 Flow Rate FiO2 12/27/17 04:00 97.9 57 20 158/89 (112) 97 12/27/17 00:32 173/90 12/27/17 00:00 98.0 52 20 173/90 (117) 97 12/26/17 21:00 Room Air 12/26/17 20:43 62 174/90 12/26/17 20:00 98.1 62 18 174/90 (118) 94 12/26/17 16:00 98.5 60 17 142/78 (99) 99 12/26/17 12:00 97.7 68 18 133/66 (88) 98 12/26/17 08:42 63 146/87 12/26/17 08:00 98.4 63 18 146/87 (106) 99 12/26/17 08:00 Room Air Intake and Output 12/26/17 12/27/17 19:00 07:00 Intake Total 2120 ml Balance 2120 ml Intake Oral 120 ml IV Total 1000 ml Other 1000 ml # Voids 3 # Bowel Movements 3 Laboratory Tests 12/27/17 05:45: White Blood Count 6.7, Red Blood Count 4.71, Hemoglobin 14.3, Hematocrit 42.3, Mean Corpuscular Volume 90, Mean Corpuscular Hemoglobin 30.2, Mean Corpuscular Hemoglobin Concent 33.7, Red Cell Distribution Width 12.3, Platelet Count 205, Mean Platelet Volume 8.0, Neutrophils (%) (Auto) 62.9, Lymphocytes (%) (Auto) 28.3, Monocytes (%) (Auto) 6.0, Eosinophils (%) (Auto) 2.3, Basophils (%) (Auto ) 0.5, Sodium Level 142, Potassium Level 3.6, Chloride Level 108H, Carbon Dioxide Level 25, Anion Gap 9, Blood Urea Nitrogen 11, Creatinine 0.8, Estimat Glomerular Filtration Rate > 60, Glucose Level 93, Calcium Level 9.1 Height (Feet): 5 Height (Inches): 1.00 Weight (Pounds): 190 Objective WDWN AA woman NCAT supple CTA RRR abd soft NT no edema Justin Reza MD Dec 27, 2017 07:57
--- NOTE | 2017-12-27 07:59 | Pre-Procedure Note/Attestation ---
Pre-Procedure Note/Attestation Complete Prior to Procedure Planned Procedure: not applicable Procedure Narrative: colonoscopy Indications for Procedure Pre-Operative Diagnosis: BRBPR Attestation I attest that I discussed the nature of the procedure; its benefits; risks and complications; and alternatives (and the risks and benefits of such alternatives ), prior to the procedure, with the patient (or the patient's legal administrative representative). I attest that, if there was a reasonable possibility of needing a blood transfusion, the patient (or the patient's legal administrative representative) was given the [facility] standardized written summary, pursuant to the [place] Blood Safety Act ([place] Health and Safety Code # 1645, as amended). I attest that I re-evaluated the patient just prior to the surgery and that there has been no change in the patient's H&P, except as documented below: Justin Reza MD Dec 27, 2017 07:59
[2017-12-27] MEDS ORDERED: NS 500ML IVPB ONE (08:00)
--- NOTE | 2017-12-27 08:06 | General Progress Note ---
Assessment/Plan Problem List: (1) Bleeding hemorrhoid ICD Codes: K64.9 - Unspecified hemorrhoids SNOMED: 20655878 (2) Diverticular hemorrhage ICD Codes: K57.31 - Diverticulosis of large intestine without perforation or abscess with bleeding SNOMED: 86608300, 662972079 (3) Hypercarbia ICD Codes: R06.89 - Other abnormalities of breathing SNOMED: 75848401 (4) Hypernatremia ICD Codes: E87.0 - Hyperosmolality and hypernatremia SNOMED: 14536185 (5) Lower GI bleed ICD Codes: K92.2 - Gastrointestinal hemorrhage, unspecified SNOMED: 50773268 Status: stable, progressing Assessment/Plan PPI rx holding aspirin no nsaids serial cbc endoscopy today Subjective ROS Limited/Unobtainable: No Constitutional: Reports: no symptoms HEENT: Reports: no symptoms Cardiovascular: Reports: no symptoms Respiratory: Reports: no symptoms Gastrointestinal/Abdominal: Reports: no symptoms Genitourinary: Reports: no symptoms Neurologic/Psychiatric: Reports: no symptoms Endocrine: Reports: no symptoms Hematologic/Lymphatic: Reports: no symptoms Allergies: Coded Allergies: IODINE (Verified Allergy, Unknown, 12/24/17) All Systems: reviewed and negative except above Subjective no bleeding. resting. Objective Last 24 Hour Vital Signs Date Time Temp Pulse Resp B/P (MAP) Pulse Ox O2 Delivery O2 Flow Rate FiO2 12/27/17 04:00 97.9 57 20 158/89 (112) 97 12/27/17 00:32 173/90 12/27/17 00:00 98.0 52 20 173/90 (117) 97 12/26/17 21:00 Room Air 12/26/17 20:43 62 174/90 12/26/17 20:00 98.1 62 18 174/90 (118) 94 12/26/17 16:00 98.5 60 17 142/78 (99) 99 12/26/17 12:00 97.7 68 18 133/66 (88) 98 12/26/17 08:42 63 146/87 Intake and Output 12/26/17 12/27/17 19:00 07:00 Intake Total 2120 ml Balance 2120 ml Intake Oral 120 ml IV Total 1000 ml Other 1000 ml # Voids 3 # Bowel Movements 3 Laboratory Tests 12/27/17 05:45: White Blood Count 6.7, Red Blood Count 4.71, Hemoglobin 14.3, Hematocrit 42.3, Mean Corpuscular Volume 90, Mean Corpuscular Hemoglobin 30.2, Mean Corpuscular Hemoglobin Concent 33.7, Red Cell Distribution Width 12.3, Platelet Count 205, Mean Platelet Volume 8.0, Neutrophils (%) (Auto) 62.9, Lymphocytes (%) (Auto) 28.3, Monocytes (%) (Auto) 6.0, Eosinophils (%) (Auto) 2.3, Basophils (%) (Auto ) 0.5, Sodium Level 142, Potassium Level 3.6, Chloride Level 108H, Carbon Dioxide Level 25, Anion Gap 9, Blood Urea Nitrogen 11, Creatinine 0.8, Estimat Glomerular Filtration Rate > 60, Glucose Level 93, Calcium Level 9.1 Height (Feet): 5 Height (Inches): 1.00 Weight (Pounds): 190 General Appearance: WD/WN, alert Neck: supple Cardiovascular: normal rate Respiratory/Chest: chest wall non-tender, lungs clear Abdomen: normal bowel sounds, non tender, soft, no organomegaly Edema: no edema noted Arm (L), no edema noted Arm (R), no edema noted Leg (L), no edema noted Leg (R), no edema noted Pedal (L), no edema noted Pedal (R), no edema noted Generalized Frederic Shipman MD Dec 27, 2017 08:06
[2017-12-27] MEDS: Docusate 100mg cap ORAL SCH ×2 (09:00→17:12)
--- NOTE | 2017-12-27 09:39 | Endoscopy Procedure Note ---
Endoscopy Procedure Note General Indication for Procedure: BRBPR Procedures Performed: colonoscopy Operative Findings/Diagnosis: diverticulosis, hemorrhoids Specimen: none Pt Tolerated Procedure Well: Yes Estimated Blood Loss: none Anesthesia Anesthesiologist: see report Anesthesia: MAC, moderate sedation Medications Medication Given: see anesthesia record Inserted Devices Implant(s) used?: No GI Core Measures 50 yrs or older w/o bx or poly: Not Applicable 10yrs. F/U not recommended: Not Applicable If not recommended, why?: Justin Reza MD Dec 27, 2017 09:39
--- NOTE | 2017-12-27 09:40 | Brief Operative Note ---
Immediate Post Operative Note Operative Note Chief Complaint: BRBPR Pre-op Diagnosis: BRBPR Procedure: Colon/bx Post-op Diagnosis: dim sigmoid and rectal polyps, (++) diverticulosis, mild hemorrhoids Surgeon: som Anesthesiologist: Xavier Bradshaw Anesthesia: MAC Specimen: yes Complications: none Condition: stable Fluids: reported Estimated Blood Loss: none Drains: none Implant(s) used?: No Justin Reza MD Dec 27, 2017 09:40
[2017-12-27] MEDS: Metoprolol 25mg tab ORAL SCH (10:37)
--- NOTE | 2017-12-27 13:13 | Immediate Post-Op Evaluation ---
Immediate Post-Op Evalulation Immediate Post-Op Evalulation Procedure: colonoscopy w/bx Date of Evaluation: Dec 27, 2017 Time of Evaluation: 09:13 IV Fluids: 500ml 0.9ns Blood Products: none Estimated Blood Loss: negligible Blood Pressure Systolic: 108 Blood Pressure Diastolic: 49 Pulse Rate: 71 Respiratory Rate: 18 O2 Sat by Pulse Oximetry: 100 Temperature (Fahrenheit): 97.0 Pain Score (1-10): 0 Nausea: No Vomiting: No Complications none Patient Status: awake, reacts, patent Hydration Status: adequate Drug: Tiffany Chisholm MD Dec 27, 2017 13:13
--- NOTE | 2017-12-27 13:15 | 48 Hour Post Anesthesia Eval ---
Post Anesthesia Evaluation Procedure: colonoscopy w/bx Date of Evaluation: Dec 27, 2017 Time of Evaluation: 09:15 Blood Pressure Systolic: 110 0: 53 Pulse Rate: 72 Respiratory Rate: 18 Temperature (Fahrenheit): 97.0 O2 Sat by Pulse Oximetry: 100 Airway: patent Nausea: No Vomiting: No Pain Intensity: 0 Hydration Status: adequate Cardiopulmonary Status: stable Mental Status/LOC: patient returned to baseline Post-Anesthesia Complications: none Follow-up care needed: N/A Tiffany Delacruz MD Dec 27, 2017 13:15
[2017-12-27] MEDS ORDERED: 1/2 NS 1000ml IV ONE (17:33)
--- NOTE | 2017-12-27 17:45 | Procedure Note ---
DATE OF PROCEDURE: 12/27/2017 PROCEDURE: Colonoscopy with biopsy. SURGEON: Justin Reza M.D. ANESTHESIA: Please see the separate anesthesiologist notes for details. PRE-ENDOSCOPIC DIAGNOSIS: Hematochezia. POST-ENDOSCOPIC DIAGNOSES: 1. Severe pancolonic diverticulosis. 2. Diminutive polyps versus fold in the sigmoid colon at 20 cm status post biopsy. 3. Diminutive rectal polyp status post biopsy removal. 4. [id number] internal hemorrhoids. DESCRIPTION OF PROCEDURE: The procedure its risks, indications, alternatives, and possible complications were explained to the patient and informed consent was obtained. The patient was sedated and a rectal exam was done, which was normal. The colonoscope was then introduced into the rectum and advanced to the cecum. The cecum was identified by the appearance of the ileocecal valve. The colonoscope was then gradually withdrawn and mucosa examined carefully. Examination of colonic mucosa revealed [id number] pancolonic diverticulosis, which was worse on the left colon. The colonic contour was redundant. In the sigmoid colon at approximately 20 to 25 cm area, there was a diminutive polyp versus fold, which was removed with biopsy forceps, second diminutive polyp, which was removed with the biopsy forceps. Retroflexed view of the rectum revealed [id number] internal hemorrhoids. The colonoscope was removed and the patient was sent to recovery in good condition. COMPLICATIONS: None. ASSESSMENT: This patient's lower gastrointestinal bleeding has resolved and it may have been either due to diverticular source versus hemorrhoidal source. The patient can be managed conservatively since she is stable and the bleeding had stopped. Diet can be resumed and she can be discharged with outpatient followup. The patient will need long-term bowel regimen given her degree of diverticulosis. RECOMMENDATIONS: 1. Resume oral diet. 2. Discharge planning. 3. Long-term bowel regimen. Justin Reza M.D. DR: LEONARD JOB#: [id number] CC:
--- NOTE | 2017-12-28 08:02 | Discharge Summary ---
Discharge Summary Discharge Summary _ DATE OF ADMISSION: 12/24/2017 DATE OF DISCHARGE: 12/27/2017 REASON FOR ADMISSION: 67 years old female with past medical history of hypertensive heart disease, ischemic cardiomyopathy, sleep apnea, osteoarthritis, hyperlipidemia, history of diverticulosis, presented with complaint of rectal bleeding and episode of chest pain prior to arrival. Upon evaluation patient noted to be bradycardic. Hemoglobin and hematocrit were stable. Patient showed evidence of dehydration, and sodium was 147. Patient was on aspirin t and anti-inflammatory medications for ankle pain duet to recent ankle sprain/strain. Patient admitted with diagnoses chest pain ,rule out acute coronary syndrome , GI bleeding, dehydration , hypernatremia ,hypertension, recent ankle sprain/ strain. CONSULTANTS: plastic tile layer GI specialist Dr. Reza [facility]: Patient initially admitted to monitored floor. Aspirin and nonsteroid anti-inflammatory medications were discontinued for now. Patient started on PPI therapy. Cardiology and GI consults were requested. Troponin was negative. EKG revealed sinus bradycardia, no acute ischemic changes . Patient was ruled out for acute PA. No further episode of chest pain. According to plastic tile layer, patient had coronary atherosclerosis with distant history of myocardial infarction, and presented with single episode of chest pain prior to admission. Per plastic [employer] [facility] patient had stable angina. Patient had sinus bradycardia on telemetry, no block. Heart rate in 50s. Patient was asymptomatic. Beta irma therapy was continued with holding parameters as per plastic tile layer. Antihypertensive medication regimen titrated to keep blood pressure under control.. GI seen and evaluated patient. Patient had no evidence of anemia ,no leukocytosis. [facility] cleared patient for colonoscopy. Patient subsequently undergone on 12/27 colonoscopy with biopsy, which revealed severe pancolonic diverticulosis, diminutive polyps versus fold in the sigmoid colon ,status post biopsy, diminutive rectal polyp, status post biopsy, [id number] internal hemorrhoids. Pathology report still pending. Oral diet was resumed and advanced as tolerated. GI specialist recommended long-term bowel regimen given severe degree of diverticulosis. Lower GI bleeding resolved, which was either due to diverticular source versus hemorrhoidal source. Hemoglobin and hematocrit were closely monitored and remained stable; prior to discharge hemoglobin 14.3 hematocrit 42.3. GI specialist cleared patient for discharge , since patient was hemodynamically stable and bleeding stopped . h He recommended conservative management and follow up with biopsy results, Patient was able to tolerate diet. Renal parameters and electrolytes were closely monitored. Electrolytes corrected as needed. Nephrotoxins were avoided. With IV hydration , sodium stabilize. Supportive care provided. Patient was stable for discharge FINAL DIAGNOSES: Lower GI bleeding , due to severe diverticulosis versus internal hemorrhoid - resolved Status post colonoscopy 12/27/17 Severe pancolonic diverticulosis [id number] internal hemorrhoids Sigmoid and rectal polyps, status post removal with biopsy Dehydration- resolved Hyponatremia- resolved Hypertensive heart disease Sinus bradycardia ( on beta irma therapy, asymptomatic) Coronary atherosclerosis with history of myocardial infarction ( currently stable angina , despite single chest pain episode) DISCHARGE MEDICATIONS: See Medication Reconciliation list. DISCHARGE INSTRUCTIONS: Patient was discharged home . Follow up with primary care provider in one week. Follow up with GI specialist. I have been assigned to dictate discharge summary for this account. I was not involved in the patient's management. Mattie Gregory NP Dec 28, 2017 08:02
--- NOTE | 2017-12-28 18:31 | Cardiology Report ---
APPROVED REPORT EKG Measurement Heart [id number] Sinus bradycardia Otherwise normal ECG
--- NOTE | 2017-12-28 22:30 | Progress Note ---
DATE: 12/27/2017 CARDIOLOGY PROGRESS NOTE Late entry for 12/27/2017. SUBJECTIVE: The patient is status post colonoscopy. Findings included diminutive polyp, moderate diverticulosis, and minimal non-bleeding hemorrhoids. The patient has no chest pain or shortness of breath and no new bleeding. OBJECTIVE: VITAL SIGNS: Blood pressure 146/80, pulse 62, respirations 18, and afebrile. Earlier episodes of blood pressure up to 177/100 noted. LUNGS: Clear. CARDIAC: Regular. Normal S1, S2 with a fourth heart sound. ABDOMEN: Soft. Slightly distended. EXTREMITIES: No edema. IMPRESSION: 1. Diverticular bleed. 2. Asymptomatic hemorrhoids. 3. Diminutive polyp with no signs of malignancy. 4. Hypertensive heart disease with rising blood pressure trend. 5. History of sleep apnea, on home CPAP. 6. Diastolic dysfunction. 7. History of coronary artery disease with stable angina. PLAN: 1. Resume anti-platelet therapy with aspirin if no recurring bleeding noted over the next week. 2. Resume amlodipine for blood pressure control. 3. Maintain beta-blockade at current dosing. 4. Fiber diet discussed. Patric Best M.D. DR: NADIYA JOB#: [id number] CC:
== END 2017-12-27 18:05 | disposition home or self-care (01) | DRG 378 ==
LOC: EMR 11:19 → 4E 13:50 → EDBEDREQ 14:41
PROC: 0DBP8ZZ Excision of Rectum, Via Natural or Artificial Opening Endoscopic (ICD-10-PCS; principal; 2017-12-27 08:05)
PROC: 0DBN8ZX Excision of Sigmoid Colon, Via Natural or Artificial Opening Endoscopic, Diagnostic (ICD-10-PCS; principal; 2017-12-27 08:05)
DX: K57.31 Diverticulosis of large intestine without perforation or abscess with bleeding (principal); E87.0 Hyperosmolality and hypernatremia; E87.1 Hypo-osmolality and hyponatremia; K64.8 Other hemorrhoids; E86.0 Dehydration; I11.9 Hypertensive heart disease without heart failure; I25.5 Ischemic cardiomyopathy; M19.90 Unspecified osteoarthritis, unspecified site; E78.5 Hyperlipidemia, unspecified; Z88.8 Allergy status to other drugs, medicaments and biological substances; R07.9 Chest pain, unspecified; K62.1 Rectal polyp; K63.5 Polyp of colon; R00.1 Bradycardia, unspecified; I25.118 Atherosclerotic heart disease of native coronary artery with other forms of angina pectoris; I25.2 Old myocardial infarction; G47.33 Obstructive sleep apnea (adult) (pediatric)
CPT/HCPCS: 36415; 71045; 74018; 80048; 80053; 81003; 83690; 84484; 85025; 85610; 85730; 93005; 94003; 94150; 96374; 99285

== ENCOUNTER 2018-01-11 12:55 | Outpatient (RCR) | payer MEDICARE, OTHER ==
[~2018-01-11 12:55] MED LIST: AMLODIPINE BES2.5 MG ORAL; ASPIR 8181 MG ORAL; DICLOFENAC SODI50 MG ORAL; LOVASTATIN40 MG ORAL; METOPROLOL TART25 MG ORAL
== END 2018-01-28 | disposition home or self-care (01) ==
LOC: PTY 12:55
DX: M51.37 Other intervertebral disc degeneration, lumbosacral region (principal); R26.89 Other abnormalities of gait and mobility; I10 Essential (primary) hypertension; I25.2 Old myocardial infarction